=== PATIENT | male | born 1945 | race Caucasian/White ===

== ENCOUNTER 2022-02-25 10:14 | Inpatient (IN) | payer OTHER ==
[2022-02-25 11:54] LABS: BASO % 0.3 % (0-2.0); EOS % 0.7 % (0-4.5); HEMATOCRIT 23.9 % (35.4-49); HEMOGLOBIN 7.6 GM/dL (11.7-16.9); LYMPH % 9.3 % (8-40); MCH 21.4 pg (25.7-33.7); MCHC 31.9 g/dl (32.0-35.9); MEAN CELL VOLUME 67.2 fl (80-96); MEAN PLT VOLUME 8.6 fl (7.5-11.1); MONO % 5.8 % (3.8-10.2); NEUT % 83.9 % (42.8-82.8); PLATELET COUNT 215 10^3/uL (134-434); RBC 3.57 M/mm3 (4.00-5.60); RDW 16.9 % (11.9-15.9); WHITE BLOOD COUNT 8.8 K/mm3 (4.0-10.0)
[2022-02-25 12:17] LABS: CALCIUM 8.7 mg/dL (8.5-10.1)
[2022-02-25 12:18] LABS: BLOOD UREA NITROGEN 77.3 mg/dL (7-18)
[2022-02-25 12:21] LABS: CREATININE 3.5 mg/dL (0.55-1.3)
[2022-02-25 12:22] LABS: BILIRUBIN,TOTAL 0.2 mg/dL (0.2-1); TOT PROT 6.3 g/dl (6.4-8.2)
[2022-02-25 12:26] LABS: ACTIVATED PTT 27.7 SECONDS (25.2-36.5); INR 1.06 (0.83-1.09); PROTHROMBIN TIME (PATIENT) 12.2 SEC (9.7-13.0)
[2022-02-25 12:49] LABS: ANISOCYTOSIS 1+
[2022-02-25] MEDS ORDERED: SODIUM CHLORIDE 250 ML IV STA (13:55)
[2022-02-25] MEDS ORDERED: amLODIPine BESYLATE 10 MG TABLET (FP) PO SCH (14:00)
[2022-02-25] MEDS ORDERED: PANTOPRAZOLE SODIUM 40 MG/100 ML BAG IVPB ONE ×2 (14:21→18:31)
[2022-02-25] MEDS ORDERED: amLODIPine BESYLATE 10 MG TABLET (FP) ONE (14:21)
[2022-02-25] MEDS ORDERED: PANTOPRAZOLE SODIUM 40 MG VIAL IVPUSH ONE (14:45)
[2022-02-25] MEDS ORDERED: SODIUM ZIRCONIUM CYCLOSILICATE (LOKELMA) 5 GM PACKET PO ONE (15:12)
[2022-02-25 16:57] LABS: EPI CELLS 1 /uL (0-25.1); HYALINE CASTS 0 /uL (0-3.1); URINE APPEARANCE CLEAR; URINE BACTERIA 1 /uL (0-1359); URINE BILIRUBIN NEGATIVE (NEGATIVE); URINE COLOR YELLOW; URINE GLUCOSE (UA) NEGATIVE (NEGATIVE); URINE KETONE NEGATIVE (NEGATIVE); URINE LEUK ESTERASE NEGATIVE (NEGATIVE); URINE NITRITE NEGATIVE (NEGATIVE); URINE PROTEIN 2+ (NEGATIVE); URINE RBC 1 /uL (0-23.9); URINE UROBILINOGEN 0.2 mg/dL (0.2-1.0); URINE WBC 1 /uL (0-25.8)
[2022-02-25] MEDS ORDERED: SODIUM ZIRCONIUM CYCLOSILICATE (LOKELMA) 5 GM PACKET ONE (18:30)
[2022-02-25] MEDS ORDERED: PANTOPRAZOLE SODIUM 40 MG VIAL ONE (18:31)
[2022-02-25] MEDS: PANTOPRAZOLE SODIUM 80 MG in SODIUM CHLORIDE 100 ML IVPB SCH (18:40)
[2022-02-25] MEDS: DEXTROSE 5%-0.45% SALINE 1,000 ML IV SCH (18:40)
[2022-02-25 20:57] LABS: HEMATOCRIT 19.7 % (35.4-49); MCH 21.1 pg (25.7-33.7); MCHC 31.7 g/dl (32.0-35.9); MEAN CELL VOLUME 66.5 fl (80-96); MEAN PLT VOLUME 8.9 fl (7.5-11.1); PLATELET COUNT 200 10^3/uL (134-434); RBC 2.97 M/mm3 (4.00-5.60); RDW 16.8 % (11.9-15.9); WHITE BLOOD COUNT 6.3 K/mm3 (4.0-10.0)
[2022-02-25 21:04] LABS: HEMOGLOBIN 6.2 GM/dL (11.7-16.9)
[2022-02-25 21:44] LABS: CHLORIDE 111 mmol/L (98-107); SODIUM 139 mmol/L (136-145)
[2022-02-25 21:46] LABS: ANION GAP 11 MMOL/L (8-16); CALCIUM 8.3 mg/dL (8.5-10.1); CO2 18 mmol/L (21-32); GLUCOSE,RANDOM 229 mg/dL (74-106)
[2022-02-25 21:50] LABS: CREATININE 3.4 mg/dL (0.55-1.3)
[2022-02-25 21:59] LABS: BLOOD UREA NITROGEN 116.2 mg/dL (7-18)
[2022-02-25] MEDS ORDERED: PANTOPRAZOLE SODIUM 40 MG VIAL IVPUSH SCH (22:00)
[2022-02-26 01:39] VITALS: BMI 25.9
[2022-02-26] MEDS: PANTOPRAZOLE SODIUM 80 MG in SODIUM CHLORIDE 100 ML IVPB SCH ×4 (05:46→21:24)
[2022-02-26] MEDS: INSULIN SLIDING SCALE (NOVOLOG) 1 VIAL SQ SCH ×4 (06:37→23:39)
[2022-02-26 08:18] LABS: BASO % 0.3 % (0-2.0); EOS % 0.9 % (0-4.5); HEMATOCRIT 23.2 % (35.4-49); HEMOGLOBIN 7.6 GM/dL (11.7-16.9); LYMPH % 22.1 % (8-40); MCH 22.6 pg (25.7-33.7); MCHC 32.7 g/dl (32.0-35.9); MEAN CELL VOLUME 69.1 fl (80-96); MEAN PLT VOLUME 8.9 fl (7.5-11.1); MONO % 13.6 % (3.8-10.2); NEUT % 63.1 % (42.8-82.8); PLATELET COUNT 175 10^3/uL (134-434); RBC 3.37 M/mm3 (4.00-5.60); RDW 18.2 % (11.9-15.9); WHITE BLOOD COUNT 6.4 K/mm3 (4.0-10.0)
[2022-02-26 08:44] LABS: CALCIUM 8.5 mg/dL (8.5-10.1); MAGNESIUM 2.6 mg/dL (1.8-2.4)
[2022-02-26 08:45] LABS: ALBUMIN 2.7 g/dl (3.4-5.0); BLOOD UREA NITROGEN 97.2 mg/dL (7-18)
[2022-02-26 08:47] LABS: PHOSPHOROUS 4.3 mg/dL (2.5-4.9)
[2022-02-26 08:48] LABS: CREATININE 3.3 mg/dL (0.55-1.3)
[2022-02-26 08:49] LABS: BILIRUBIN,TOTAL 0.6 mg/dL (0.2-1); TOT PROT 5.5 g/dl (6.4-8.2)
[2022-02-26] MEDS: amLODIPine BESYLATE 10 MG TABLET (FP) PO SCH (12:25)
[2022-02-26] MEDS: DEXTROSE 5%-0.45% SALINE 1,000 ML IV SCH (16:55)
[2022-02-26 22:12] LABS: BASO % 0.3 % (0-2.0); EOS % 1.9 % (0-4.5); HEMATOCRIT 21.7 % (35.4-49); HEMOGLOBIN 7.1 GM/dL (11.7-16.9); MCH 22.5 pg (25.7-33.7); MCHC 32.7 g/dl (32.0-35.9); MEAN CELL VOLUME 68.7 fl (80-96); MEAN PLT VOLUME 8.3 fl (7.5-11.1); MONO % 8.1 % (3.8-10.2); NEUT % 76.7 % (42.8-82.8); PLATELET COUNT 180 10^3/uL (134-434); RBC 3.16 M/mm3 (4.00-5.60); RDW 18.1 % (11.9-15.9); WHITE BLOOD COUNT 6.9 K/mm3 (4.0-10.0)
[2022-02-27] MEDS: DEXTROSE 5%-0.45% SALINE 1,000 ML IV SCH ×3 (02:58→12:55)
[2022-02-27] MEDS: INSULIN SLIDING SCALE (NOVOLOG) 1 VIAL SQ SCH ×4 (06:48→22:25)
[2022-02-27] MEDS: PANTOPRAZOLE SODIUM 80 MG in SODIUM CHLORIDE 100 ML IVPB SCH (06:51)
[2022-02-27 09:12] LABS: BASO % 0.3 % (0-2.0); EOS % 2.4 % (0-4.5); HEMATOCRIT 23.5 % (35.4-49); HEMOGLOBIN 7.6 GM/dL (11.7-16.9); MCH 22.4 pg (25.7-33.7); MCHC 32.3 g/dl (32.0-35.9); MEAN CELL VOLUME 69.4 fl (80-96); MEAN PLT VOLUME 8.2 fl (7.5-11.1); MONO % 10.2 % (3.8-10.2); NEUT % 63.1 % (42.8-82.8); PLATELET COUNT 197 10^3/uL (134-434); RBC 3.39 M/mm3 (4.00-5.60); RDW 18.8 % (11.9-15.9); RETICULOCYTES 1.87 % (0.5-1.5); WHITE BLOOD COUNT 5.5 K/mm3 (4.0-10.0)
[2022-02-27] MEDS: amLODIPine BESYLATE 10 MG TABLET (FP) PO SCH (09:31)
[2022-02-27 09:34] LABS: CALCIUM 8.6 mg/dL (8.5-10.1)
[2022-02-27 09:35] LABS: BLOOD UREA NITROGEN 72.4 mg/dL (7-18)
[2022-02-27 09:38] LABS: CREATININE 3.2 mg/dL (0.55-1.3)
[2022-02-27] MEDS: SODIUM BICARBONATE 650 MG TABLET PO SCH ×2 (13:02→22:24)
[2022-02-27 15:25] LABS: HEMATOCRIT 24.6 % (35.4-49); HEMOGLOBIN 8.1 GM/dL (11.7-16.9); MCH 23.5 pg (25.7-33.7); MEAN CELL VOLUME 71.4 fl (80-96); MEAN PLT VOLUME 8.8 fl (7.5-11.1); PLATELET COUNT 184 10^3/uL (134-434); RBC 3.45 M/mm3 (4.00-5.60); RDW 20.7 % (11.9-15.9); WHITE BLOOD COUNT 5.4 K/mm3 (4.0-10.0)
[2022-02-28] MEDS: INSULIN SLIDING SCALE (NOVOLOG) 1 VIAL SQ SCH ×4 (06:22→22:53)
[2022-02-28] MEDS: SODIUM BICARBONATE 650 MG TABLET PO SCH ×2 (09:41→22:46)
[2022-02-28] MEDS: PANTOPRAZOLE 40 MG TABLET PO SCH (09:41)
[2022-02-28] MEDS: amLODIPine BESYLATE 10 MG TABLET (FP) PO SCH (09:41)
[2022-02-28 11:00] LABS: BASO % 0.5 % (0-2.0); EOS % 4.2 % (0-4.5); HEMATOCRIT 25.6 % (35.4-49); HEMOGLOBIN 8.3 GM/dL (11.7-16.9); LYMPH % 20.6 % (8-40); MCH 23.1 pg (25.7-33.7); MCHC 32.4 g/dl (32.0-35.9); MEAN CELL VOLUME 71.3 fl (80-96); MEAN PLT VOLUME 8.7 fl (7.5-11.1); MONO % 11.8 % (3.8-10.2); NEUT % 62.9 % (42.8-82.8); PLATELET COUNT 191 10^3/uL (134-434); RBC 3.58 M/mm3 (4.00-5.60); RDW 20.7 % (11.9-15.9); WHITE BLOOD COUNT 5.6 K/mm3 (4.0-10.0)
[2022-02-28 11:22] LABS: BLOOD UREA NITROGEN 55.3 mg/dL (7-18)
[2022-02-28 11:23] LABS: CALCIUM 8.6 mg/dL (8.5-10.1); PHOSPHOROUS 3.5 mg/dL (2.5-4.9)
[2022-02-28 11:24] LABS: CREATININE 2.9 mg/dL (0.55-1.3); MAGNESIUM 2.3 mg/dL (1.8-2.4)
[2022-02-28] MEDS: DEXTROSE 5%-0.45% SALINE 1,000 ML IV SCH (18:49)
[2022-03-01] MEDS: INSULIN SLIDING SCALE (NOVOLOG) 1 VIAL SQ SCH ×3 (06:24→16:43)
[2022-03-01] MEDS: PANTOPRAZOLE 40 MG TABLET PO SCH (09:08)
[2022-03-01] MEDS: amLODIPine BESYLATE 10 MG TABLET (FP) PO SCH (09:08)
[2022-03-01] MEDS: SODIUM BICARBONATE 650 MG TABLET PO SCH (09:08)
[2022-03-01 09:42] LABS: BASO % 0.5 % (0-2.0); EOS % 3.7 % (0-4.5); HEMATOCRIT 30.1 % (35.4-49); HEMOGLOBIN 9.8 GM/dL (11.7-16.9); LYMPH % 18.2 % (8-40); MCH 23.3 pg (25.7-33.7); MCHC 32.5 g/dl (32.0-35.9); MEAN CELL VOLUME 71.7 fl (80-96); MEAN PLT VOLUME 9.1 fl (7.5-11.1); MONO % 8.5 % (3.8-10.2); NEUT % 69.1 % (42.8-82.8); PLATELET COUNT 230 10^3/uL (134-434); RDW 21.8 % (11.9-15.9)
[2022-03-01 10:48] LABS: ANISOCYTOSIS 1+; MACROCYTOSIS 0
[2022-03-01 18:20] VITALS: BP 152/72; PULSE 76; TEMP 98.3
== END 2022-03-01 19:30 | disposition home or self-care (01) | DRG 381 ==
LOC: JER 10:14 → JERBED 13:31 → J5S 19:31
PROVIDERS: ADMIT Internal Medicine; ATTEND Internal Medicine
PROC: 30233N1 Transfusion of Nonautologous Red Blood Cells into Peripheral Vein, Percutaneous Approach (ICD-10-PCS; 2022-02-25)
PROC: 0W3P8ZZ Control Bleeding in Gastrointestinal Tract, Via Natural or Artificial Opening Endoscopic (ICD-10-PCS; 2022-02-26)
PROC: 0DB68ZX Excision of Stomach, Via Natural or Artificial Opening Endoscopic, Diagnostic (ICD-10-PCS; principal; 2022-02-26 11:00)
DX: K22.11 Ulcer of esophagus with bleeding (principal); N18.4 Chronic kidney disease, stage 4 (severe); D62 Acute posthemorrhagic anemia; I12.9 Hypertensive chronic kidney disease with stage 1 through stage 4 chronic kidney disease, or unspecified chronic kidney disease; E11.22 Type 2 diabetes mellitus with diabetic chronic kidney disease; E87.5 Hyperkalemia; T39.015A Adverse effect of aspirin, initial encounter; D63.1 Anemia in chronic kidney disease; K22.89 Other specified disease of esophagus; E86.9 Volume depletion, unspecified; E78.5 Hyperlipidemia, unspecified; K44.9 Diaphragmatic hernia without obstruction or gangrene; K21.00 Gastro-esophageal reflux disease with esophagitis, without bleeding; E66.9 Obesity, unspecified; Z68.25 Body mass index [BMI] 25.0-25.9, adult; R55 Syncope and collapse; Z86.010 Personal history of colon polyps; Z85.46 Personal history of malignant neoplasm of prostate
CPT/HCPCS: 36415; 36430; 71045-TC-FY; 80048; 80053; 81003; 82272; 82728; 82962; 83036; 83540; 83550; 83735; 84100; 84484; 85025; 85027; 85045; 85610; 85730; 86850; 86900; 86901; 86922; 88305-TC; 93005; 93010; 99285-25; C9803-CS; P9058; U0003; U0005

== ENCOUNTER 2023-02-16 10:18 | Inpatient (IN) | payer OTHER ==
[2023-02-16] MEDS ORDERED: PANTOPRAZOLE SODIUM 40 MG VIAL IVPUSH ONE (11:48)
[2023-02-16 11:52] LABS: HEMATOCRIT 24.3 % (35.4-49); HEMOGLOBIN 7.6 G/dL (11.7-16.9); MCH 21.8 pg (25.7-33.7); MCHC 31.2 g/dl (32.0-35.9); MEAN CELL VOLUME 70.1 fl (80-96); MEAN PLT VOLUME 9.1 fl (7.5-11.1); PLATELET COUNT 236.7 10^3/uL (134-434); RBC 3.47 10^6/uL (4.00-5.60); RDW 20.2 % (11.9-15.9)
[2023-02-16] MEDS ORDERED: PANTOPRAZOLE SODIUM 40 MG VIAL ONE (11:52)
[2023-02-16 11:53] LABS: ADD RBC MORPHOLOGY YES
[2023-02-16 12:04] LABS: CALCIUM 8.7 mg/dl (8.5-10); CREATININE 4.3 mg/dl (0.55-1.3)
[2023-02-16 12:05] LABS: INR 1.02 (0.83-1.09); PROTHROMBIN TIME (PATIENT) 11.7 SEC (9.7-13.0)
[2023-02-16 12:06] LABS: ALBUMIN 3.1 g/dl (3.4-5.0); BILIRUBIN,TOTAL 0.5 mg/dl (0.2-1); MAGNESIUM 2.1 mg/dL (1.8-2.4); TOT PROT 6.1 g/dl (6.4-8.2)
[2023-02-16 12:08] LABS: ACTIVATED PTT 30.4 SECONDS (25.2-36.5)
[2023-02-16] MEDS ORDERED: hydrALAZINE HCL 50 MG TABLET (FP) PO ONE (12:11)
[2023-02-16] MEDS ORDERED: amLODIPine BESYLATE 10 MG TABLET (FP) PO ONE (12:11)
[2023-02-16] MEDS ORDERED: amLODIPine BESYLATE 5 MG TABLET (FP) ONE (12:16)
[2023-02-16] MEDS ORDERED: hydrALAZINE HCL 25 MG TABLET (FP) ONE (12:16)
[2023-02-16 13:02] LABS: ANISOCYTOSIS 2+; OVALOCYTE 1+; TARGET CELLS 1+; TEAR DROP CELLS 1+
[2023-02-16 13:04] LABS: PLATELET ESTIMATE ADEQUATE
[2023-02-16] MEDS: SODIUM BICARBONATE 650 MG TABLET PO SCH ×2 (15:52→21:55)
[2023-02-16] MEDS: INSULIN SLIDING SCALE (NOVOLOG) 1 VIAL SQ SCH ×2 (15:57→21:59)
[2023-02-16] MEDS: hydrALAZINE HCL 50 MG TABLET (FP) PO SCH (21:55)
[2023-02-16] MEDS: PANTOPRAZOLE SODIUM 40 MG VIAL IVPUSH SCH (21:55)
[2023-02-16 23:17] VITALS: RESP 18; TEMP 98.4
[2023-02-17] MEDS: SODIUM BICARBONATE 650 MG TABLET PO SCH (06:12)
[2023-02-17] MEDS: INSULIN SLIDING SCALE (NOVOLOG) 1 VIAL SQ SCH ×2 (07:53→11:28)
[2023-02-17 07:55] LABS: INR 1.06 (0.83-1.09); PROTHROMBIN TIME (PATIENT) 12.2 SEC (9.7-13.0)
[2023-02-17] MEDS ORDERED: TAMSULOSIN HCL 0.4 MG CAP PO SCH (08:30)
[2023-02-17 08:56] LABS: CALCIUM 8.7 mg/dl (8.5-10); CREATININE 4.5 mg/dl (0.55-1.3); MAGNESIUM 2.1 mg/dL (1.8-2.4); PHOSPHOROUS 4.6 mg/dl (2.5-4.9)
[2023-02-17] MEDS: PANTOPRAZOLE SODIUM 40 MG VIAL IVPUSH SCH (09:05)
[2023-02-17] MEDS: hydrALAZINE HCL 50 MG TABLET (FP) PO SCH (09:05)
[2023-02-17 09:17] VITALS: BP 170/69; PULSE 97
[2023-02-17 09:18] LABS: BASO % 0.5 % (0-2.0); EOS % 1.6 % (0-4.5); HEMATOCRIT 24.4 % (35.4-49); LYMPH % 24.1 % (8-40); MCH 22.7 pg (25.7-33.7); MEAN CELL VOLUME 68.7 fl (80-96); MEAN PLT VOLUME 9.1 fl (7.5-11.1); MONO % 13.3 % (3.8-10.2); NEUT % 60.5 % (42.8-82.8); PLATELET COUNT 222 10^3/uL (134-434); RBC 3.55 M/mm3 (4.00-5.60); RDW 19.4 % (11.9-15.9); WHITE BLOOD COUNT 4.9 K/mm3 (4.0-10.0)
[2023-02-17] MEDS ORDERED: amLODIPine BESYLATE 10 MG TABLET (FP) PO SCH (10:00)
[2023-02-17 15:04] VITALS: BMI 28.1
== END 2023-02-17 12:50 | disposition home or self-care (01) | DRG 377 ==
LOC: FER 10:18 → FM/S 12:23
PROVIDERS: ADMIT Internal Medicine
PROC: 30233N1 Transfusion of Nonautologous Red Blood Cells into Peripheral Vein, Percutaneous Approach (ICD-10-PCS; 2023-02-16)
PROC: 0DB68ZX Excision of Stomach, Via Natural or Artificial Opening Endoscopic, Diagnostic (ICD-10-PCS; principal; 2023-02-16 16:47)
DX: K92.2 Gastrointestinal hemorrhage, unspecified (principal); N18.6 End stage renal disease; I12.0 Hypertensive chronic kidney disease with stage 5 chronic kidney disease or end stage renal disease; D62 Acute posthemorrhagic anemia; E11.22 Type 2 diabetes mellitus with diabetic chronic kidney disease; E78.5 Hyperlipidemia, unspecified; K29.50 Unspecified chronic gastritis without bleeding; K44.9 Diaphragmatic hernia without obstruction or gangrene; K21.9 Gastro-esophageal reflux disease without esophagitis
CPT/HCPCS: 0241U-QW; 36415; 36430; 71046-TC-FY; 80048; 80053; 82272; 82728; 82962; 83540; 83550; 83605; 83690; 83735; 84100; 85025; 85610; 85730; 86850; 86900; 86901; 86922; 88305-TC; 93005; 99285-25; P9058